=== PATIENT | male | born 1970 | race Caucasian/White ===

== ENCOUNTER 2019-06-25 18:20 | Emergency (ER) | payer SELFPAY ==
[~2019-06-25] VITALS: Ht 167.6 cm; Wt 95.0 kg
[2019-06-25] MEDS ORDERED: PERTUSS(ACELL),DIPH,TET VAC/PF 0.5 ML VIAL IM ONE (20:30)
[2019-06-25] MEDS ORDERED: SODIUM CHLORIDE 0.9% 250 ML IRRIG SOLUTION BOTTLE IRRIG ONE (20:30)
[2019-06-25] MEDS ORDERED: HYDROCODONE/ACETAMINOPHEN 5-325 MG TABLET PO ONE (20:30)
[2019-06-25 22:30] VITALS: BP 127/81
== END 2019-06-25 22:42 | disposition home or self-care (01) ==
LOC: EMS 18:35
DX: S62.631A Displaced fracture of distal phalanx of left index finger, initial encounter for closed fracture (principal); W34.00XA Accidental discharge from unspecified firearms or gun, initial encounter; Y93.9 Activity, unspecified; Y92.89 Other specified places as the place of occurrence of the external cause; Y99.8 Other external cause status
CPT/HCPCS: 29130; 73140; 90471; 90715; 96372; 99283; J0690

== ENCOUNTER 2019-07-09 13:47 | Emergency (ER) | payer SELFPAY ==
[~2019-07-09] VITALS: Ht 165.1 cm; Wt 102.3 kg
[2019-07-09 18:56] VITALS: BP 155/80
== END 2019-07-09 18:58 | disposition home or self-care (01) ==
LOC: EMS 13:49
DX: M79.645 Pain in left finger(s) (principal)